=== PATIENT | female | born 1995 | race Caucasian/White ===

== ENCOUNTER 2017-03-04 05:35 | Emergency (ER) | payer SELFPAY ==
--- NOTE | 2017-03-04 05:59 | ED NURSING NOTES ---
Clinical Report - Nurses [facility] [address] [place] [address] 03/04/2017 5:37 Patient: DUSTIN HAMMONDS TRIAGE Triage time 05:37. Acuity: LEVEL 4. Chief Complaint: SORE THROAT. 05:49 03/04/17. Alert. No acute distress. SEPSIS SCREEN: Sepsis Screen. Negative (no infection suspected/documented). --05:49 Radha Gonzalez R.N. 05:42 03/04/17. BP: 105/63. HR: 74. RR: 15. O2 saturation: 100%. Temp: 98.3 F. Pain level now: 04/26. --05:49 Radha Gonzalez R.N. Weight: 77.1 kg stated. Height/Length: 65 inches Per Patient. BMI: 28.3. --05:48 Radha Gonzalez R.N. Medications None. --05:46 Radha Gonzalez R.N. Allergies None. --05:46 Radha Gonzalez R.N. History Arrived by private vehicle. Historian: patient. Accompanied by friend. Onset. (a few days ago). ( Patient states her throat has progressively gotten more sore over the past few days. She states "I came in today because it hurt so bad to swallow." Patient reports having a 101F temperature earlier today.). She has had sinus pain. ( productive cough). PAST MEDICAL HX: Immunizations: up-to-date. Denies current . SOCIAL HX: Light tobacco smoker- less than 1/2 a pack per day. Occasional alcohol use. History of drug use: marijuana. FALL RISK ASSESSMENT: Fall risk assessment completed. No fall risk identified. NUTRITIONAL RISK ASSESSMENT: The nutritional risk assessment revealed no deficiencies. FUNCTIONAL ASSESSMENT: Functional assessment: no impairments noted. LEARNING NEEDS ASSESSMENT: The learning needs assessment revealed no barriers. --05:49 Radha Gonzalez R.N. PROBLEMS: no known problems. ADDITIONAL SURGERIES: no known surgeries. Interventions ID band on patient. To treatment room. --05:49 Radha Gonzalez R.N. PHYSICAL ASSESSMENT 05:51 03/04/17. Ambulatory to room. GENERAL / NEURO / PSYCH: Alert. Oriented X 4. Appears in no acute distress. HEENT: Pupils equal, round and reactive to light. Posterior pharyngeal erythema. Voice within normal limits. Mouth within normal limits upon inspection. No dental injury noted. Mucous membranes are pink. RESPIRATORY: Respirations not labored. CVS: Capillary refill less than 2 seconds. SKIN: Skin is warm and dry. --05:51 Radha Gonzalez R.N. NURSING PROGRESS NOTES 05:51 03/04/17. Two patient identifiers checked. Call light placed in reach. Side rails up x 1. Bed placed in lowest position. Brakes of bed on. --05:51 Radha Gonzalez R.N. ( positive strep called by Nicki in the lab to writing RN. Patient birthday and name verified. Provider notified.). --06:12 Tiffany Uribe 06:00 03/04/2017 Clindamycin PO Tablets 300 mg given. Allergies verified and confirmed 5 rights. --20:30 Radha Gonzalez R.N. 06:02 03/04/2017 Hydrocodone-APAP (Hydrocodone-Acetaminophen) PO 5/325 mg Tablets 1 tab given. Allergies verified, confirmed 5 rights and sedative warning given to the patient. --20:31 Radha Gonzalez R.N. 06:03 03/04/2017 Zofran ODT (Ondansetron) PO Oral Disintegrating Tablets 4 mg given. Allergies verified and confirmed 5 rights. --20:31 Radha Gonzalez R.N. DISPOSITION / DISCHARGE 06:09 03/04/17. No learning barriers present. Discharge instructions provided and reviewed with the patient. Reviewed warnings. Reviewed medication(s). Treatments reviewed. Activity restrictions reviewed. The patient was discharged home and accompanied by small wind energy installer. She left the Emergency Department ambulatory and via private vehicle. Automation Engineering Technician driving. --06:09 Radha Gonzalez R.N. 05:42 03/04/17. BP: 105/63. HR: 74. RR: 15. O2 saturation: 100%. Temp: 98.3 F. Pain level now: 04/26. --06:09 Radha Gonzalez R.N. Locked/Released at 03/09/2017 20:32 by Radha Gonzalez R.N.
--- NOTE | 2017-03-04 05:59 | ED NURSING NOTES ---
Clinical Report - Nurses [facility] [address] [place] [address] 03/04/2017 5:37 Patient: DUSTIN HAMMONDS TRIAGE Triage time 05:37. Acuity: LEVEL 4. Chief Complaint: SORE THROAT. 05:49 03/04/17. Alert. No acute distress. SEPSIS SCREEN: Sepsis Screen. Negative (no infection suspected/documented). --05:49 Radha Gonzalez R.N. 05:42 03/04/17. BP: 105/63. HR: 74. RR: 15. O2 saturation: 100%. Temp: 98.3 F. Pain level now: 04/26. --05:49 Radha Gonzalez R.N. Weight: 77.1 kg stated. Height/Length: 65 inches Per Patient. BMI: 28.3. --05:48 Radha Gonzalez R.N. Medications None. --05:46 Radha Gonzalez R.N. Allergies None. --05:46 Radha Gonzalez R.N. History Arrived by private vehicle. Historian: patient. Accompanied by friend. Onset. (a few days ago). ( Patient states her throat has progressively gotten more sore over the past few days. She states "I came in today because it hurt so bad to swallow." Patient reports having a 101F temperature earlier today.). She has had sinus pain. ( productive cough). PAST MEDICAL HX: Immunizations: up-to-date. Denies current . SOCIAL HX: Light tobacco smoker- less than 1/2 a pack per day. Occasional alcohol use. History of drug use: marijuana. FALL RISK ASSESSMENT: Fall risk assessment completed. No fall risk identified. NUTRITIONAL RISK ASSESSMENT: The nutritional risk assessment revealed no deficiencies. FUNCTIONAL ASSESSMENT: Functional assessment: no impairments noted. LEARNING NEEDS ASSESSMENT: The learning needs assessment revealed no barriers. --05:49 Radha Gonzalez R.N. PROBLEMS: no known problems. ADDITIONAL SURGERIES: no known surgeries. Interventions ID band on patient. To treatment room. --05:49 Radha Gonzalez R.N. PHYSICAL ASSESSMENT 05:51 03/04/17. Ambulatory to room. GENERAL / NEURO / PSYCH: Alert. Oriented X 4. Appears in no acute distress. HEENT: Pupils equal, round and reactive to light. Posterior pharyngeal erythema. Voice within normal limits. Mouth within normal limits upon inspection. No dental injury noted. Mucous membranes are pink. RESPIRATORY: Respirations not labored. CVS: Capillary refill less than 2 seconds. SKIN: Skin is warm and dry. --05:51 Radha Gonzalez R.N. NURSING PROGRESS NOTES 05:51 03/04/17. Two patient identifiers checked. Call light placed in reach. Side rails up x 1. Bed placed in lowest position. Brakes of bed on. --05:51 Radha Gonzalez R.N. ( positive strep called by Nicki in the lab to writing RN. Patient birthday and name verified. Provider notified.). --06:12 Tiffany Uribe 06:00 03/04/2017 Clindamycin PO Tablets 300 mg given. Allergies verified and confirmed 5 rights. --20:30 Radha Gonzalez R.N. 06:02 03/04/2017 Hydrocodone-APAP (Hydrocodone-Acetaminophen) PO 5/325 mg Tablets 1 tab given. Allergies verified, confirmed 5 rights and sedative warning given to the patient. --20:31 Radha Gonazlez R.N. 06:03 03/04/2017 Zofran ODT (Ondansetron) PO Oral Disintegrating Tablets 4 mg given. Allergies verified and confirmed 5 rights. --20:31 Radha Gonzalez R.N. DISPOSITION / DISCHARGE 06:09 03/04/17. No learning barriers present. Discharge instructions provided and reviewed with the patient. Reviewed warnings. Reviewed medication(s). Treatments reviewed. Activity restrictions reviewed. The patient was discharged home and accompanied by tin can feeder. She left the Emergency Department ambulatory and via private vehicle. Rice Farmworker driving. --06:09 Radha Gonzalez R.N. 05:42 03/04/17. BP: 105/63. HR: 74. RR: 15. O2 saturation: 100%. Temp: 98.3 F. Pain level now: 04/26. --06:09 Radha Gonzalez R.N. Locked/Released at 03/09/2017 20:32 by Radha Gonzalez R.N.
--- NOTE | 2017-03-04 05:59 | ED CLINICAL REPORT ---
Clinical Report - Physicians/Mid Levels [facility] [address] [place] [address] 03/04/2017 5:37 Patient: DUSTIN HAMMONDS Time Seen: 05:47. Arrived- By private vehicle. Historian- patient. HISTORY OF PRESENT ILLNESS Chief Complaint: SORE THROAT. This started several days ago and is still present. It was gradual in onset and has been waxing/waning. Pain described as moderate. The patient has had a moderate sore throat with pain upon swallowing. She has been able to swallow. (Patient states her throat has progressively gotten more sore over the past few days. She states "I came in today because it hurt so bad to swallow." Patient reports having a 101F temperature earlier toda). Similar symptoms previously: None. Recent medical care: Not recently seen/assessed. REVIEW OF SYSTEMS The patient has had fever. No cough, difficulty breathing, nausea, diarrhea or abdominal pain. No difficulty with urination, headache, fainting episodes, joint pain or skin rash. No vomiting. Denies current . All systems otherwise negative, except as recorded above. PAST HISTORY Negative. See nurses notes. Problems: no known problems. Surgeries: No history of previous surgery. Additional Surgeries: no known surgeries. Medications: None. Allergies: None. SOCIAL HISTORY Smoker- current status unknown. Occasional alcohol use. History of drug use: marijuana. Is a local resident. ADDITIONAL NOTES The nursing notes have been reviewed. PHYSICAL EXAM Vital Signs: 03/04/2017 05:42 BP: 105/63. HR: 74. RR: 15. O2 saturation: 100%. Temp: 98.3 F. Pain level now: 8/10. Appearance: Alert. Patient in mild distress. Head: Normal external inspection. Eyes: Conjunctivae and eyelids normal. ENT: Nose normal. Moderate generalized pharyngeal erythema with right tonsillar swelling and left tonsillar swelling. No pharyngeal ulcerations. No right tonsillar exudate, right tonsillar abscess, left tonsillar exudate or left tonsillar abscess. No trismus present. Uvula midline. No mouth ulcerations, tonsillar exudate, peritonsillar mass, muffled or hoarse voice or drooling. The mucous membranes are not dry. Neck: Normal inspection. Mild right anterior neck and mild left anterior neck lymphadenopathy present. Trachea midline. Neck supple. No meningeal signs. CVS: Normal heart rate and rhythm. Heart sounds normal. Pulses normal. No cardiac murmur. Respiratory: No respiratory distress. Breath sounds normal. Abdomen: Soft and nontender. No organomegaly. Skin: No cyanosis. Normal skin color. No rash. Normal skin turgor. No diaphoresis. Extremities: Extremities exhibit normal ROM. Extremities nontender. Neuro: Oriented X 3. No motor deficit. LABS, X-RAYS, AND EKG Laboratory Tests: Culture, Strep Screen: (WILLY: 03/04/2017 05:51) ( MsgRcvd 03/04/2017 06:12) Final results Test Result Flag Units (Reference) RAPID STREP SCREEN - THROAT CALLED TO: AURA@0611 -- DATE: 03/04/17 POSITIVE SCREEN: RAPID STREP SCREEN: POSITIVE FOR GROUP A STREP . Pulse Oximetry: 03/04/2017 05:42 O2 saturation: 100%. (FIO2 - room air). Interpretation: normal. PROGRESS AND PROCEDURES Course of Care: Hydrocodone/APAP 5 mg PO given. Prednisone 60 mg PO given. Zofran 4 mg ODT PO given. Clindamycin 300 mg PO given. No signs of abscess now. Patient/family counseled. Prior records not ordered. Disposition: Discharged. Condition: stable and improved. CLINICAL IMPRESSION Acute streptococcal pharyngitis Chronic substance abuse- tobacco (cigarettes), marijuana. INSTRUCTIONS Do not work for two days. Drink plenty of fluids. Do not smoke. Seek medical help to quit smoking. Warnings: Further evaluation is necessary in order to recheck abnormal lab and obtain test results. It is very important to follow up with a physician. SEDATIVE MEDICATION: You were given sedative medication during your visit. Do not drive or operate dangerous machinery. CONTROLLED SUBSTANCE WARNINGS. GENERAL WARNINGS: Return or contact your physician immediately if your condition worsens or changes unexpectedly, if not improving as expected, or if other problems arise. Prescription Medications: Hydrocodone/APAP 5mg / 325mg: take 1-2 orally every 8 hours as needed for pain. Dispense ten (10). No refill. Zofran (orally disintegrating tablets) 4 mg: take 1-2 orally every 8 hours as needed for nausea and vomiting. Dispense five (5). No refill. Substitution is permissible. Cleocin 300 mg: take 1 capsule orally every 6 hours for 7 days. No refills. Substitution is permissible. Prednisone 20 mg: take 3 orally every 12 hours for 4 days. Dispense sufficient quantity. No refills. OTC Medications: Acetaminophen (available over the counter): take according to label instructions. Follow-up: Follow up with your doctor in two days. (Electronically signed by Guille Frances DO 03/04/2017 6:15)
--- NOTE | 2017-03-04 05:59 | ED ORDER SUMMARY ---
..... Patient: DUSTIN HAMMONDS OrderSheet [facility] VisitID: [id number] [place] [address] 21y, F Registration Date/Time: 03/04/2017 ORDER SHEET Weight: 77.1 kg (stated) Allergies: None GENERAL ORDERS: Culture, Strep Screen Urgent (05:49 03/04/2017 [facility]) (Ack 5:55 RKaruga) (5:56 RMarsden R.N.) MEDICATION ORDERS: Clindamycin PO 300 mg (NOW) (05:55 03/04/2017 [facility]) (Ack 5:57 RMarsden R.N.) (20:30 RMarsden R.N.) Hydrocodone-APAP PO 5/325 mg (NOW, HIGH ALERT MEDICATION) (05:56 03/04/2017 [facility]) (Ack 5:57 RMarsden R.N.) (20:31 RMarsden R.N.) Zofran ODT PO 4 mg (NOW) (05:56 03/04/2017 [facility]) (Ack 5:57 RMarsden R.N.) (20:31 RMarsden R.N.) IV FLUIDS: ORDER SHEET NOTES: [Electronically signed by Guille Frances DO (06:15 03/04/2017)] [Electronically signed by Radha Gonzalez R.N. (20:32 03/09/2017)] [Electronically locked/signed by Radha Gonzalez R.N. (20:32 03/09/2017)]
--- NOTE | 2017-03-04 05:59 | ED ORDER SUMMARY ---
..... Patient: DUSTIN HAMMONDS OrderSheet [facility] VisitID: [id number] [place] [address] 21y, F Registration Date/Time: 03/04/2017 ORDER SHEET Weight: 77.1 kg (stated) Allergies: None GENERAL ORDERS: Culture, Strep Screen Urgent (05:49 03/04/2017 [facility]) (Ack 5:55 RKaruga) (5:56 RMarsden R.N.) MEDICATION ORDERS: Clindamycin PO 300 mg (NOW) (05:55 03/04/2017 [facility]) (Ack 5:57 RMarsden R.N.) (20:30 RMarsden R.N.) Hydrocodone-APAP PO 5/325 mg (NOW, HIGH ALERT MEDICATION) (05:56 03/04/2017 [facility]) (Ack 5:57 RMarsden R.N.) (20:31 RMarsden R.N.) Zofran ODT PO 4 mg (NOW) (05:56 03/04/2017 [facility]) (Ack 5:57 RMarsden R.N.) (20:31 RMarsden R.N.) IV FLUIDS: ORDER SHEET NOTES: [Electronically signed by Guille Frances DO (06:15 03/04/2017)] [Electronically signed by Radha Gonzalez R.N. (20:32 03/09/2017)] [Electronically locked/signed by Radha Gonzalez R.N. (20:32 03/09/2017)]
--- NOTE | 2017-03-09 20:32 | ED DISCHARGE INSTRUCTIONS ---
Patient: DUSTIN HAMMONDS General Instructions [facility] VisitID: [id number] [place] [address] 21y, F Registration Date/Time: 03/04/2017 Acute streptococcal pharyngitis Chronic substance abuse- tobacco (cigarettes), marijuana. INSTRUCTIONS Do not work for two days. Drink plenty of fluids. Do not smoke. Seek medical help to quit smoking. Warnings: Further evaluation is necessary in order to recheck abnormal lab and obtain test results. It is very important to follow up with a physician. SEDATIVE MEDICATION: You were given sedative medication during your visit. Do not drive or operate dangerous machinery. CONTROLLED SUBSTANCE WARNINGS. GENERAL WARNINGS: Return or contact your physician immediately if your condition worsens or changes unexpectedly, if not improving as expected, or if other problems arise. Prescription Medications: Hydrocodone/APAP 5mg / 325mg: take 1-2 orally every 8 hours as needed for pain. Dispense ten (10). No refill. Zofran (orally disintegrating tablets) 4 mg: take 1-2 orally every 8 hours as needed for nausea and vomiting. Dispense five (5). No refill. Substitution is permissible. Cleocin 300 mg: take 1 capsule orally every 6 hours for 7 days. No refills. Substitution is permissible. Prednisone 20 mg: take 3 orally every 12 hours for 4 days. Dispense sufficient quantity. No refills. OTC Medications: Acetaminophen (available over the counter): take according to label instructions. Follow-up: Follow up with your doctor in two days. ADDITIONAL INFORMATION Pharyngitis (Sore Throat),Report Pending Pharyngitis (sore throat) is often due to a virus, but can also be caused by thestrepbacteria. This is calledstrep throat. Both viral and strep infection can cause throat pain that is worse when swallowing, aching all over with headache and fever. Both types of infections are contagious. They may be spread by coughing, kissing or touching others after touching your mouth or nose. A test has been done to determine whether or not you have strep throat. Call this facility as directed for the result. If it is positive for strep infection you will need to take antibiotics. A prescription can be called in to your pharmacy at that time. If the test is negative, you probably have a viral pharyngitis and it will not require antibiotic treatment. Home Care: If your symptoms are severe, rest at home for the first 2-3 days. If you are told that your test is positive for strep, you should be off work and school for the first two days of antibiotic treatment. After that, you will no longer be contagious. Children: Use acetaminophen (Tylenol) for fever, fussiness or discomfort. In infants over six months of age, you may use ibuprofen (Children's Motrin) instead of Tylenol. [NOTE: If your child has chronic liver or kidney disease or ever had a stomach ulcer or GI bleeding, talk with your doctor before using these medicines.] (Aspirin should never be used in anyone under 18 years of age who is ill with a fever. It may cause severe liver damage.)Adults: You may use acetaminophen (Tylenol) or ibuprofen (Motrin, Advil) to control pain or fever, unless another medicine was prescribed for this. [NOTE: If you have chronic liver or kidney disease or ever had a stomach ulcer or GI bleeding, talk with your doctor before using these medicines.] Throat lozenges or sprays (Chloraseptic and others), or gargling with warm salt water will reduce throat pain. Dissolve 1/2 teaspoon of salt in 1 glass of warm water. This is especially useful just before meals. Follow Up with your doctor as advised by our staff if you are not improving over the next week. Get Prompt Medical Attention if any of the following occur: Fever of 100.4F (38C) oral or higher, not better with fever medication New or worsening ear pain, sinus pain or headache Painful lumps in the back of your neck Unable to swallow liquids or open your mouth wide due to throat pain Trouble breathing or noisy breathing Muffled voice New rash Marijuana Abuse Marijuana is the most widely used illegal drug in the [place]. It is called by various names such as pot, weed, blunts, grass, reefer, ganja, hash, hashish. It is usually smoked but can be mixed with foods or brewed as a tea. It is sometimes sold with PCP (Mario Dust) or amphetamine mixed in it. These drugs can cause other harmful side effects. Marijuana can cause the following effects: Changes in mood (stimulated, happy, drowsy, depressed, paranoid) Hallucinations Increased heart rate and blood pressure Increased appetite Time distortion, difficulty concentrating, impaired memory Lung damage (similar to cigarettes with chronic cough, wheezing, frequent colds and bronchitis) You can become psychologically dependent on marijuana. That means the craving to use the drug is emotional or psychological rather than due to physical withdrawal. Is Marijuana Running Your Life? Here are some of the signs: Relying on marijuana to feel good, forget problems, deal with stress or to relax Wanting to be alone most of the time or only with others who use drugs Losing interest in things that used to be important Changes in school or job performance or attendance Spending a lot of time thinking about how to get marijuana Stealing or selling your things so you can buy marijuana Unable to stop using even though you may want to quit Increasing anxiety, anger,or depression Sleeping too much, changes in eating habits (weight loss or gain) Needing to use more to get the same effect Home Care Once you have become addicted to any drug, quitting is hard to do. Most people find they can't quit without help. So, dont try to do this alone. Talk to someone you trust who can support you. Seek professional help. Avoid people and places where drugs are used. That only increases the temptation to use. Follow Up with your doctor or as advised by our staff. For more information or a referral to a treatment center in your area, contact: Your local mental health center or the National Alcohol and Substance Abuse Information Center (207)-055-0756 www.addictioncareoptions.com National [place] on Alcoholism and Drug Dependence 058-518-TUWK www.ncadd.org Marijuana Anonymous 477-005-4829 www.marijuana-anonymous.org Get Prompt Medical Attention if any of the following occur: You feel extreme depression, fear, anxiety, or anger toward yourself or others You feel out of control You feel that you may try to harm yourself or another How To Quit Smoking Smoking is one of the hardest habits to break. About half of all those who have ever smoked have been able to quit, and most of those (about 70%) who still smoke want to quit. Here are some of the best ways to stop smoking. Keep Trying: It takes most smokers about 8 tries before they are finally able to fully quit. So, the more often you try and fail, the better your chance of quitting the next time! So, don't give up! Go Cold [place]: Most ex-smokers quit cold turkey. Trying to cut back gradually doesn't seem to work as well, perhaps because it continues the smoking habit. Also, it is possible to fool yourself by inhaling more while smoking fewer cigarettes. This results in the same amount of nicotine in your body! Get Support: Support programs can make an important difference, especially for the heavy smoker. These groups offer lectures, methods to change your behavior and peer support. Call the free national Quitline for more information. 556-FGLG-OFB (143-438-8885). Low-cost or free programs are offered by many hospitals, local chapters of the [place] [employer] (981-915-1006) and the [place] [employer] (947-191-7674). Support at home is important too. Non-smokers can help by offering praise and encouragement. If the smoker fails to quit, encourage them to try again! Uruc-Pfm-Ivmhodv Medicines: For those who can't quit on their own, Nicotine Replacement Therapy (NRT) may make quitting much easier. Certain aids such as the nicotine patch, gum and lozenge are available without a prescription. However, it is best to use these under the guidance of your doctor. The skin patch provides a steady supply of nicotine to the body. Nicotine gum and lozenge gives temporary bursts of low levels of nicotine. Both methods take the edge off the craving for cigarettes. WARNING: If you feel symptoms of nicotine overdose, such as nausea, vomiting, dizziness, weakness, or fast heartbeat, stop using these and see your doctor. Prescription Medicines: After evaluating your smoking patterns and prior attempts at quitting, your doctor may offer a prescription medicine such as bupropion (Zyban, Wellbutrin), varenicline (Chantix, Champix), a niocotine inhaler or nasal spray. Each has its unique advantage and side effects which your doctor can review with you. Health Benefits Of Quitting: The benefits of quitting start right away and keep improving the longer you go without smokin minutes: blood pressure and pulse return to normal 8 hours: oxygen levels return to normal 2 days: ability to smell and taste begins to improve as damaged nerves start to regrow 2-3 weeks: circulation and lung function improves 1-9 months: decreased cough, congestion and shortness of breath; less tired 1 year: risk of heart attack decreases by half 5 years: risk of lung cancer decreases by half; risk of stroke becomes the same as a non-smoker For information about how to quit smoking, visit the following links: National Cancer Wiley , Clearing the Air, Quit Smoking Today - an online booklet. http://www.smokefree.gov/pubs/clearing_the_air.pdf Smokefree.gov http://smokefree.gov/ QuitNet http://www.quitnet.com/ Hydrocodone Bitartrate, Acetaminophen Oral tablet What is this medicine? ACETAMINOPHEN; HYDROCODONE (a set a SHAGGY junaita fen; milady droe KOE done) is a pain reliever. It is used to treat mild to moderate pain. How should I use this medicine? Take this medicine by mouth. Swallow it with a full glass of water. Follow the directions on the prescription label. If the medicine upsets your stomach, take the medicine with food or milk. Do not take more than you are told to take. Talk to your lumber sticker regarding the use of this medicine in children. This medicine is not approved for use in children. What side effects may I notice from receiving this medicine? Side effects that you should report to your doctor or health animal care taker as soon as possible: allergic reactions like skin rash, itching or hives, swelling of the face, lips, or tongue breathing problems confusion feeling faint or lightheaded, falls stomach pain yellowing of the eyes or skin Side effects that usually do not require medical attention (report to your doctor or health animal care taker if they continue or are bothersome): nausea, vomiting stomach upset What may interact with this medicine? alcohol antihistamines isoniazid medicines for depression, anxiety, or psychotic disturbances medicines for sleep muscle relaxants naltrexone narcotic medicines (opiates) for pain phenobarbital ritonavir tramadol What if I miss a dose? If you miss a dose, take it as soon as you can. If it is almost time for your next dose, take only that dose. Do not take double or extra doses. Where should I keep my medicine? Keep out of the reach of children. This medicine can be abused. Keep your medicine in a safe place to protect it from theft. Do not share this medicine with anyone. Selling or giving away this medicine is dangerous and against the law. Store at room temperature between 15 and 30 degrees C (59 and 86 degrees F). Protect from light. Keep container tightly closed. Throw away any unused medicine after the expiration date. Discard unused medicine and used packaging carefully. Pets and children can be harmed if they find used or lost packages. What should I tell my health care provider before I take this medicine? They need to know if you have any of these conditions: brain tumor Crohn's disease, inflammatory bowel disease, or ulcerative colitis drink more than 3 alcohol-containing drinks per day drug abuse or addiction head injury heart or circulation problems kidney disease or problems going to the bathroom liver disease lung disease, asthma, or breathing problems an unusual or allergic reaction to acetaminophen, hydrocodone, other opioid analgesics, other medicines, foods, dyes, or preservatives or trying to get breast-feeding What should I watch for while using this medicine? Tell your doctor or health animal care taker if your pain does not go away, if it gets worse, or if you have new or a different type of pain. You may develop tolerance to the medicine. Tolerance means that you will need a higher dose of the medicine for pain relief. Tolerance is normal and is expected if you take the medicine for a long time. Do not suddenly stop taking your medicine because you may develop a severe reaction. Your body becomes used to the medicine. This does NOT mean you are addicted. Addiction is a behavior related to getting and using a drug for a non-medical reason. If you have pain, you have a medical reason to take pain medicine. Your doctor will tell you how much medicine to take. If your doctor wants you to stop the medicine, the dose will be slowly lowered over time to avoid any side effects. You may get drowsy or dizzy when you first start taking the medicine or change doses. Do not drive, use machinery, or do anything that may be dangerous until you know how the medicine affects you. Stand or sit up slowly. There are different types of narcotic medicines (opiates) for pain. If you take more than one type at the same time, you may have more side effects. Give your health care provider a list of all medicines you use. Your doctor will tell you how much medicine to take. Do not take more medicine than directed. Call emergency for help if you have problems breathing. The medicine will cause constipation. Try to have a bowel movement at least every 2 to 3 days. If you do not have a bowel movement for 3 days, call your doctor or health animal care taker. Too much acetaminophen can be very dangerous. Do not take Tylenol (acetaminophen) or medicines that contain acetaminophen with this medicine. Many non-prescription medicines contain acetaminophen. Always read the labels carefully. Ondansetron Oral disintegrating tablet What is this medicine? ONDANSETRON (on SHO se david) is used to treat nausea and vomiting caused by chemotherapy. It is also used to prevent or treat nausea and vomiting after surgery. How should I use this medicine? These tablets are made to dissolve in the mouth. Do not try to push the tablet through the foil backing. With dry hands, peel away the foil backing and gently remove the tablet. Place the tablet in the mouth and allow it to dissolve, then swallow. While you may take these tablets with water, it is not necessary to do so. Talk to your lumber sticker regarding the use of this medicine in children. Special care may be needed. What side effects may I notice from receiving this medicine? Side effects that you should report to your doctor or health animal care taker as soon as possible: allergic reactions like skin rash, itching or hives, swelling of the face, lips, or tongue breathing problems dizziness fast or irregular heartbeat feeling faint or lightheaded, falls fever and chills swelling of the hands and feet tightness in the chest Side effects that usually do not require medical attention (report to your doctor or health animal care taker if they continue or are bothersome): constipation or diarrhea headache What may interact with this medicine? Do not take this medicine with any of the following medications: -apomorphine -cisapride -dofetilide -dronedarone -pimozide -thioridazine -ziprasidone This medicine may also interact with the following medications: -carbamazepine -phenytoin -rifampicin -tramadol -other medicines that prolong the QT interval (cause an abnormal heart rhythm) What if I miss a dose? If you miss a dose, take it as soon as you can. If it is almost time for your next dose, take only that dose. Do not take double or extra doses. Where should I keep my medicine? Keep out of the reach of children. Store between 2 and 30 degrees C (36 and 86 degrees F). Throw away any unused medicine after the expiration date. What should I tell my health care provider before I take this medicine? They need to know if you have any of these conditions: heart disease history of irregular heartbeat liver disease low levels of magnesium or potassium in the blood an unusual or allergic reaction to ondansetron, granisetron, other medicines, foods, dyes, or preservatives or trying to get breast-feeding What should I watch for while using this medicine? Check with your doctor or health animal care taker as soon as you can if you have any sign of an allergic reaction. Clindamycin Hydrochloride Oral capsule What is this medicine? CLINDAMYCIN (DAVID Griffin) is a lincosamide antibiotic. It is used to treat certain kinds of bacterial infections. It will not work for colds, flu, or other viral infections. How should I use this medicine? Take this medicine by mouth with a full glass of water. Follow the directions on the prescription label. You can take this medicine with food or on an empty stomach. If the medicine upsets your stomach, take it with food. Take your medicine at regular intervals. Do not take your medicine more often than directed. Take all of your medicine as directed even if you think your are better. Do not skip doses or stop your medicine early. Talk to your lumber sticker regarding the use of this medicine in children. Special care may be needed. What side effects may I notice from receiving this medicine? Side effects that you should report to your doctor or health animal care taker as soon as possible: allergic reactions like skin rash, itching or hives, swelling of the face, lips, or tongue dark urine pain on swallowing redness, blistering, peeling or loosening of the skin, including inside the mouth unusual bleeding or bruising unusually weak or tired yellowing of eyes or skin Side effects that usually do not require medical attention (report to your doctor or health animal care taker if they continue or are bothersome): diarrhea itching in the rectal or genital area joint pain nausea, vomiting stomach pain What may interact with this medicine? chloramphenicol erythromycin kaolin products What if I miss a dose? If you miss a dose, take it as soon as you can. If it is almost time for your next dose, take only that dose. Do not take double or extra doses. Where should I keep my medicine? Keep out of the reach of children. Store at room temperature between 20 and 25 degrees C (68 and 77 degrees F). Throw away any unused medicine after the expiration date. What should I tell my health care provider before I take this medicine? They need to know if you have any of these conditions: kidney disease liver disease stomach problems like colitis an unusual or allergic reaction to clindamycin, lincomycin, or other medicines, foods, dyes like tartrazine or preservatives or trying to get breast-feeding What should I watch for while using this medicine? Tell your doctor or healthcare professional if your symptoms do not start to get better or if they get worse. Do not treat diarrhea with over the counter products. Contact your doctor if you have diarrhea that lasts more than 2 days or if it is severe and watery. Prednisone Oral tablet What is this medicine? PREDNISONE (PRED ni sone) is a corticosteroid. It is commonly used to treat inflammation of the skin, joints, lungs, and other organs. Common conditions treated include asthma, allergies, and arthritis. It is also used for other conditions, such as blood disorders and diseases of the adrenal glands. How should I use this medicine? Take this medicine by mouth with a glass of water. Follow the directions on the prescription label. Take this medicine with food. If you are taking this medicine once a day, take it in the morning. Do not take more medicine than you are told to take. Do not suddenly stop taking your medicine because you may develop a severe reaction. Your doctor will tell you how much medicine to take. If your doctor wants you to stop the medicine, the dose may be slowly lowered over time to avoid any side effects. Talk to your lumber sticker regarding the use of this medicine in children. Special care may be needed. What side effects may I notice from receiving this medicine? Side effects that you should report to your doctor or health animal care taker as soon as possible: allergic reactions like skin rash, itching or hives, swelling of the face, lips, or tongue changes in emotions or moods changes in vision depressed mood eye pain fever or chills, cough, sore throat, pain or difficulty passing urine increased thirst swelling of ankles, feet Side effects that usually do not require medical attention (report to your doctor or health animal care taker if they continue or are bothersome): confusion, excitement, restlessness headache nausea, vomiting skin problems, acne, thin and shiny skin trouble sleeping weight gain What may interact with this medicine? Do not take this medicine with any of the following medications: metyrapone mifepristone This medicine may also interact with the following medications: aminoglutethimide amphotericin B aspirin and aspirin-like medicines barbiturates certain medicines for diabetes, like glipizide or glyburide cholestyramine cholinesterase inhibitors cyclosporine digoxin diuretics ephedrine female hormones, like estrogens and control pills isoniazid ketoconazole NSAIDS, medicines for pain and inflammation, like ibuprofen or naproxen phenytoin rifampin toxoids vaccines warfarin What if I miss a dose? If you miss a dose, take it as soon as you can. If it is almost time for your next dose, talk to your doctor or health animal care taker. You may need to miss a dose or take an extra dose. Do not take double or extra doses without advice. Where should I keep my medicine? Keep out of the reach of children. Store at room temperature between 15 and 30 degrees C (59 and 86 degrees F). Protect from light. Keep container tightly closed. Throw away any unused medicine after the expiration date. What should I tell my health care provider before I take this medicine? They need to know if you have any of these conditions: Marcia's syndrome diabetes glaucoma heart disease high blood pressure infection (especially a virus infection such as chickenpox, cold sores, or herpes) kidney disease liver disease mental illness myasthenia gravis osteoporosis seizures stomach or intestine problems thyroid disease an unusual or allergic reaction to lactose, prednisone, other medicines, foods, dyes, or preservatives or trying to get breast-feeding What should I watch for while using this medicine? Visit your doctor or health animal care taker for regular checks on your progress. If you are taking this medicine over a prolonged period, carry an identification card with your name and address, the type and dose of your medicine, and your doctor's name and address. This medicine may increase your risk of getting an infection. Tell your doctor or health animal care taker if you are around anyone with measles or chickenpox, or if you develop sores or blisters that do not heal properly. If you are going to have surgery, tell your doctor or health animal care taker that you have taken this medicine within the last twelve months. Ask your doctor or health animal care taker about your diet. You may need to lower the amount of salt you eat. This medicine may affect blood sugar levels. If you have diabetes, check with your doctor or health animal care taker before you change your diet or the dose of your diabetic medicine. Acetaminophen Oral tablet What is this medicine? ACETAMINOPHEN (a set a SHAGGY juanita fen) is a pain reliever. It is used to treat mild pain and fever. How should I use this medicine? Take this medicine by mouth with a glass of water. Follow the directions on the package or prescription label. Take your medicine at regular intervals. Do not take your medicine more often than directed. Talk to your lumber sticker regarding the use of this medicine in children. While this drug may be prescribed for children as young as 6 years of age for selected conditions, precautions do apply. What side effects may I notice from receiving this medicine? Side effects that you should report to your doctor or health animal care taker as soon as possible: allergic reactions like skin rash, itching or hives, swelling of the face, lips, or tongue breathing problems fever or sore throat redness, blistering, peeling or loosening of the skin, including inside the mouth trouble passing urine or change in the amount of urine unusual bleeding or bruising unusually weak or tired yellowing of the eyes or skin Side effects that usually do not require medical attention (report to your doctor or health animal care taker if they continue or are bothersome): headache nausea, stomach upset What may interact with this medicine? alcohol imatinib isoniazid other medicines with acetaminophen What if I miss a dose? If you miss a dose, take it as soon as you can. If it is almost time for your next dose, take only that dose. Do not take double or extra doses. Where should I keep my medicine? Keep out of reach of children. Store at room temperature between 20 and 25 degrees C (68 and 77 degrees F). Protect from moisture and heat. Throw away any unused medicine after the expiration date. What should I tell my health care provider before I take this medicine? They need to know if you have any of these conditions: if you frequently drink alcohol containing drinks liver disease an unusual or allergic reaction to acetaminophen, other medicines, foods, dyes or preservatives or trying to get breast-feeding What should I watch for while using this medicine? Tell your doctor or health animal care taker if the pain lasts more than 10 days (5 days for children), if it gets worse, or if there is a new or different kind of pain. Also, check with your doctor if a fever lasts for more than 3 days. Do not take other medicines that contain acetaminophen with this medicine. Always read labels carefully. If you have questions, ask your doctor or pharmacist. If you take too much acetaminophen get medical help right away. Too much acetaminophen can be very dangerous and cause liver damage. Even if you do not have symptoms, it is important to get help right away. You have been given the following additional information: Pharyngitis, Report Pending Marijuana Abuse Smoking Cessation Hydrocodone Bitartrate, Acetaminophen Oral tablet Ondansetron Oral disintegrating tablet Clindamycin Hydrochloride Oral capsule Prednisone Oral tablet Acetaminophen Oral tablet Do not work for two days. (Electronically signed by Guille Frances DO 03/04/2017 6:15)
--- NOTE | 2017-03-09 20:32 | ED MAR SUMMARY ---
..... Medication Administration Record [facility] [address] [place] [address] Patient: DUSTIN HAMMONDS Visit ID: [id number] 21y, F Weight: 77.1 kg Height/Length: 65 in BMI: 28.3 ALLERGIES: None Given 06:00 03/04/2017 Radha Gonzalez RRyley Medication Administered: CLINDAMYCIN [PO], Dose: 300 mg Tablets PO. Medication Ordered: Clindamycin PO 300 mg (NOW). Given 06:02 03/04/2017 Radha Gonzalez RChristineNChristine Medication Administered: HYDROCODONE-APAP [PO] (HYDROCODONE-ACETAMINOPHEN), Dose: 1 tab 5/325 mg Tablets PO. Medication Ordered: Hydrocodone-APAP PO 5/325 mg (NOW, HIGH ALERT MEDICATION). Given 06:03 03/04/2017 Radha Gonzalez, R.N. Medication Administered: ZOFRAN ODT [PO] (ONDANSETRON), Dose: 4 mg Oral Disintegrating Tablets PO. Medication Ordered: Zofran ODT PO 4 mg (NOW).
--- NOTE | 2017-03-09 20:32 | ED MED RECONCILIATION SUMMARY ---
Patient: DUSTIN HAMMONDS Medication Reconciliation Report [facility] VisitID: [id number] [place] [address] 21y, F Registration Date/Time: 03/04/2017 Weight: 77.1 kg Height/Length: 65 in. BMI: 28.3 ALLERGIES: None The patient's Home Medications are listed below: NONE. The source(s) of the original Home Medication information: Not obtained. The following Medications were given to the patient in the Emergency Department: Clindamycin [PO] PO 300 mg, administered: 03/04/2017 6:00:00 AM Hydrocodone-APAP [PO] PO 1 tab, administered: 03/04/2017 6:02:00 AM Zofran ODT [PO] PO 4 mg, administered: 03/04/2017 6:03:00 AM The following Medications were prescribed to the patient: Acetaminophen (available over the counter): take according to label instructions. -- Guille Frances DO Hydrocodone/APAP 5mg / 325mg: take 1-2 orally every 8 hours as needed for pain. Dispense ten (10). No refill. -- Guille Frances DO Zofran (orally disintegrating tablets) 4 mg: take 1-2 orally every 8 hours as needed for nausea and vomiting. Dispense five (5). No refill. Substitution is permissible. -- Guille Frances DO Cleocin 300 mg: take 1 capsule orally every 6 hours for 7 days. No refills. Substitution is permissible. -- Guille Frances DO Prednisone 20 mg: take 3 orally every 12 hours for 4 days. Dispense sufficient quantity. No refills. -- Guille Frances DO
--- NOTE | 2017-03-09 20:32 | ED MAR SUMMARY ---
..... Medication Administration Record [facility] [address] [place] [address] Patient: DUSTIN HAMMONDS Visit ID: [id number] 21y, F Weight: 77.1 kg Height/Length: 65 in BMI: 28.3 ALLERGIES: None Given 06:00 03/04/2017 Radha Gonzalez RRyley Medication Administered: CLINDAMYCIN [PO], Dose: 300 mg Tablets PO. Medication Ordered: Clindamycin PO 300 mg (NOW). Given 06:02 03/04/2017 Radha Gonzalez RChristineNChristine Medication Administered: HYDROCODONE-APAP [PO] (HYDROCODONE-ACETAMINOPHEN), Dose: 1 tab 5/325 mg Tablets PO. Medication Ordered: Hydrocodone-APAP PO 5/325 mg (NOW, HIGH ALERT MEDICATION). Given 06:03 03/04/2017 Radha Gonzalez, R.N. Medication Administered: ZOFRAN ODT [PO] (ONDANSETRON), Dose: 4 mg Oral Disintegrating Tablets PO. Medication Ordered: Zofran ODT PO 4 mg (NOW).
--- NOTE | 2017-03-09 20:32 | ED DISCHARGE INSTRUCTIONS ---
Patient: DUSTIN HAMMONDS General [facility] VisitID: [id number] [place] [address] 21y, F Registration Date/Time: 03/04/2017 Acute streptococcal pharyngitis Chronic substance abuse- tobacco (cigarettes), marijuana. INSTRUCTIONS Do not work for two days. Drink plenty of fluids. Do not smoke. Seek medical help to quit smoking. Warnings: Further evaluation is necessary in order to recheck abnormal lab and obtain test results. It is very important to follow up with a physician. SEDATIVE MEDICATION: You were given sedative medication during your visit. Do not drive or operate dangerous machinery. CONTROLLED SUBSTANCE WARNINGS. GENERAL WARNINGS: Return or contact your physician immediately if your condition worsens or changes unexpectedly, if not improving as expected, or if other problems arise. Prescription Medications: Hydrocodone/APAP 5mg / 325mg: take 1-2 orally every 8 hours as needed for pain. Dispense ten (10). No refill. Zofran (orally disintegrating tablets) 4 mg: take 1-2 orally every 8 hours as needed for nausea and vomiting. Dispense five (5). No refill. Substitution is permissible. Cleocin 300 mg: take 1 capsule orally every 6 hours for 7 days. No refills. Substitution is permissible. Prednisone 20 mg: take 3 orally every 12 hours for 4 days. Dispense sufficient quantity. No refills. OTC Medications: Acetaminophen (available over the counter): take according to label instructions. Follow-up: Follow up with your doctor in two days. ADDITIONAL INFORMATION Pharyngitis (Sore Throat),Report Pending Pharyngitis (sore throat) is often due to a virus, but can also be caused by thestrepbacteria. This is calledstrep throat. Both viral and strep infection can cause throat pain that is worse when swallowing, aching all over with headache and fever. Both types of infections are contagious. They may be spread by coughing, kissing or touching others after touching your mouth or nose. A test has been done to determine whether or not you have strep throat. Call this facility as directed for the result. If it is positive for strep infection you will need to take antibiotics. A prescription can be called in to your pharmacy at that time. If the test is negative, you probably have a viral pharyngitis and it will not require antibiotic treatment. Home Care: If your symptoms are severe, rest at home for the first 2-3 days. If you are told that your test is positive for strep, you should be off work and school for the first two days of antibiotic treatment. After that, you will no longer be contagious. Children: Use acetaminophen (Tylenol) for fever, fussiness or discomfort. In infants over six months of age, you may use ibuprofen (Children's Motrin) instead of Tylenol. [NOTE: If your child has chronic liver or kidney disease or ever had a stomach ulcer or GI bleeding, talk with your doctor before using these medicines.] (Aspirin should never be used in anyone under 18 years of age who is ill with a fever. It may cause severe liver damage.)Adults: You may use acetaminophen (Tylenol) or ibuprofen (Motrin, Advil) to control pain or fever, unless another medicine was prescribed for this. [NOTE: If you have chronic liver or kidney disease or ever had a stomach ulcer or GI bleeding, talk with your doctor before using these medicines.] Throat lozenges or sprays (Chloraseptic and others), or gargling with warm salt water will reduce throat pain. Dissolve 1/2 teaspoon of salt in 1 glass of warm water. This is especially useful just before meals. Follow Up with your doctor as advised by our staff if you are not improving over the next week. Get Prompt Medical Attention if any of the following occur: Fever of 100.4F (38C) oral or higher, not better with fever medication New or worsening ear pain, sinus pain or headache Painful lumps in the back of your neck Unable to swallow liquids or open your mouth wide due to throat pain Trouble breathing or noisy breathing Muffled voice New rash Marijuana Abuse Marijuana is the most widely used illegal drug in the [place]. It is called by various names such as pot, weed, blunts, grass, reefer, ganja, hash, hashish. It is usually smoked but can be mixed with foods or brewed as a tea. It is sometimes sold with PCP (Mario Dust) or amphetamine mixed in it. These drugs can cause other harmful side effects. Marijuana can cause the following effects: Changes in mood (stimulated, happy, drowsy, depressed, paranoid) Hallucinations Increased heart rate and blood pressure Increased appetite Time distortion, difficulty concentrating, impaired memory Lung damage (similar to cigarettes with chronic cough, wheezing, frequent colds and bronchitis) You can become psychologically dependent on marijuana. That means the craving to use the drug is emotional or psychological rather than due to physical withdrawal. Is Marijuana Running Your Life? Here are some of the signs: Relying on marijuana to feel good, forget problems, deal with stress or to relax Wanting to be alone most of the time or only with others who use drugs Losing interest in things that used to be important Changes in school or job performance or attendance Spending a lot of time thinking about how to get marijuana Stealing or selling your things so you can buy marijuana Unable to stop using even though you may want to quit Increasing anxiety, anger,or depression Sleeping too much, changes in eating habits (weight loss or gain) Needing to use more to get the same effect Home Care Once you have become addicted to any drug, quitting is hard to do. Most people find they can't quit without help. So, dont try to do this alone. Talk to someone you trust who can support you. Seek professional help. Avoid people and places where drugs are used. That only increases the temptation to use. Follow Up with your doctor or as advised by our staff. For more information or a referral to a treatment center in your area, contact: Your local mental health center or the National Alcohol and Substance Abuse Information Center (052)-172-4556 www.addictioncareoptions.com National [place] on Alcoholism and Drug Dependence 740-324-SEDY www.ncadd.org Marijuana Anonymous 769-015-7718 www.marijuana-anonymous.org Get Prompt Medical Attention if any of the following occur: You feel extreme depression, fear, anxiety, or anger toward yourself or others You feel out of control You feel that you may try to harm yourself or another How To Quit Smoking Smoking is one of the hardest habits to break. About half of all those who have ever smoked have been able to quit, and most of those (about 70%) who still smoke want to quit. Here are some of the best ways to stop smoking. Keep Trying: It takes most smokers about 8 tries before they are finally able to fully quit. So, the more often you try and fail, the better your chance of quitting the next time! So, don't give up! Go Cold [place]: Most ex-smokers quit cold turkey. Trying to cut back gradually doesn't seem to work as well, perhaps because it continues the smoking habit. Also, it is possible to fool yourself by inhaling more while smoking fewer cigarettes. This results in the same amount of nicotine in your body! Get Support: Support programs can make an important difference, especially for the heavy smoker. These groups offer lectures, methods to change your behavior and peer support. Call the free national Quitline for more information. 016-SWCA-ILE (301-342-1907). Low-cost or free programs are offered by many hospitals, local chapters of the [place] [employer] (454-916-3819) and the [place] [employer] (280-703-8223). Support at home is important too. Non-smokers can help by offering praise and encouragement. If the smoker fails to quit, encourage them to try again! Owhc-Niq-Xfrqtke Medicines: For those who can't quit on their own, Nicotine Replacement Therapy (NRT) may make quitting much easier. Certain aids such as the nicotine patch, gum and lozenge are available without a prescription. However, it is best to use these under the guidance of your doctor. The skin patch provides a steady supply of nicotine to the body. Nicotine gum and lozenge gives temporary bursts of low levels of nicotine. Both methods take the edge off the craving for cigarettes. WARNING: If you feel symptoms of nicotine overdose, such as nausea, vomiting, dizziness, weakness, or fast heartbeat, stop using these and see your doctor. Prescription Medicines: After evaluating your smoking patterns and prior attempts at quitting, your doctor may offer a prescription medicine such as bupropion (Zyban, Wellbutrin), varenicline (Chantix, Champix), a niocotine inhaler or nasal spray. Each has its unique advantage and side effects which your doctor can review with you. Health Benefits Of Quitting: The benefits of quitting start right away and keep improving the longer you go without smokin minutes: blood pressure and pulse return to normal 8 hours: oxygen levels return to normal 2 days: ability to smell and taste begins to improve as damaged nerves start to regrow 2-3 weeks: circulation and lung function improves 1-9 months: decreased cough, congestion and shortness of breath; less tired 1 year: risk of heart attack decreases by half 5 years: risk of lung cancer decreases by half; risk of stroke becomes the same as a non-smoker For information about how to quit smoking, visit the following links: National Cancer [place] , Clearing the Air, Quit Smoking Today - an online booklet. http://www.smokefree.gov/pubs/clearing_the_air.pdf Smokefree.gov http://smokefree.gov/ QuitNet http://www.quitnet.com/ Hydrocodone Bitartrate, Acetaminophen Oral tablet What is this medicine? ACETAMINOPHEN; HYDROCODONE (a set a SHAGGY juanita fen; milady droe KOE done) is a pain reliever. It is used to treat mild to moderate pain. How should I use this medicine? Take this medicine by mouth. Swallow it with a full glass of water. Follow the directions on the prescription label. If the medicine upsets your stomach, take the medicine with food or milk. Do not take more than you are told to take. Talk to your can vacuum tester regarding the use of this medicine in children. This medicine is not approved for use in children. What side effects may I notice from receiving this medicine? Side effects that you should report to your doctor or health restorative care technician as soon as possible: allergic reactions like skin rash, itching or hives, swelling of the face, lips, or tongue breathing problems confusion feeling faint or lightheaded, falls stomach pain yellowing of the eyes or skin Side effects that usually do not require medical attention (report to your doctor or health restorative care technician if they continue or are bothersome): nausea, vomiting stomach upset What may interact with this medicine? alcohol antihistamines isoniazid medicines for depression, anxiety, or psychotic disturbances medicines for sleep muscle relaxants naltrexone narcotic medicines (opiates) for pain phenobarbital ritonavir tramadol What if I miss a dose? If you miss a dose, take it as soon as you can. If it is almost time for your next dose, take only that dose. Do not take double or extra doses. Where should I keep my medicine? Keep out of the reach of children. This medicine can be abused. Keep your medicine in a safe place to protect it from theft. Do not share this medicine with anyone. Selling or giving away this medicine is dangerous and against the law. Store at room temperature between 15 and 30 degrees C (59 and 86 degrees F). Protect from light. Keep container tightly closed. Throw away any unused medicine after the expiration date. Discard unused medicine and used packaging carefully. Pets and children can be harmed if they find used or lost packages. What should I tell my health care provider before I take this medicine? They need to know if you have any of these conditions: brain tumor Crohn's disease, inflammatory bowel disease, or ulcerative colitis drink more than 3 alcohol-containing drinks per day drug abuse or addiction head injury heart or circulation problems kidney disease or problems going to the bathroom liver disease lung disease, asthma, or breathing problems an unusual or allergic reaction to acetaminophen, hydrocodone, other opioid analgesics, other medicines, foods, dyes, or preservatives or trying to get breast-feeding What should I watch for while using this medicine? Tell your doctor or health restorative care technician if your pain does not go away, if it gets worse, or if you have new or a different type of pain. You may develop tolerance to the medicine. Tolerance means that you will need a higher dose of the medicine for pain relief. Tolerance is normal and is expected if you take the medicine for a long time. Do not suddenly stop taking your medicine because you may develop a severe reaction. Your body becomes used to the medicine. This does NOT mean you are addicted. Addiction is a behavior related to getting and using a drug for a non-medical reason. If you have pain, you have a medical reason to take pain medicine. Your doctor will tell you how much medicine to take. If your doctor wants you to stop the medicine, the dose will be slowly lowered over time to avoid any side effects. You may get drowsy or dizzy when you first start taking the medicine or change doses. Do not drive, use machinery, or do anything that may be dangerous until you know how the medicine affects you. Stand or sit up slowly. There are different types of narcotic medicines (opiates) for pain. If you take more than one type at the same time, you may have more side effects. Give your health care provider a list of all medicines you use. Your doctor will tell you how much medicine to take. Do not take more medicine than directed. Call emergency for help if you have problems breathing. The medicine will cause constipation. Try to have a bowel movement at least every 2 to 3 days. If you do not have a bowel movement for 3 days, call your doctor or health restorative care technician. Too much acetaminophen can be very dangerous. Do not take Tylenol (acetaminophen) or medicines that contain acetaminophen with this medicine. Many non-prescription medicines contain acetaminophen. Always read the labels carefully. Ondansetron Oral disintegrating tablet What is this medicine? ONDANSETRON (on SHO se david) is used to treat nausea and vomiting caused by chemotherapy. It is also used to prevent or treat nausea and vomiting after surgery. How should I use this medicine? These tablets are made to dissolve in the mouth. Do not try to push the tablet through the foil backing. With dry hands, peel away the foil backing and gently remove the tablet. Place the tablet in the mouth and allow it to dissolve, then swallow. While you may take these tablets with water, it is not necessary to do so. Talk to your can vacuum tester regarding the use of this medicine in children. Special care may be needed. What side effects may I notice from receiving this medicine? Side effects that you should report to your doctor or health restorative care technician as soon as possible: allergic reactions like skin rash, itching or hives, swelling of the face, lips, or tongue breathing problems dizziness fast or irregular heartbeat feeling faint or lightheaded, falls fever and chills swelling of the hands and feet tightness in the chest Side effects that usually do not require medical attention (report to your doctor or health restorative care technician if they continue or are bothersome): constipation or diarrhea headache What may interact with this medicine? Do not take this medicine with any of the following medications: -apomorphine -cisapride -dofetilide -dronedarone -pimozide -thioridazine -ziprasidone This medicine may also interact with the following medications: -carbamazepine -phenytoin -rifampicin -tramadol -other medicines that prolong the QT interval (cause an abnormal heart rhythm) What if I miss a dose? If you miss a dose, take it as soon as you can. If it is almost time for your next dose, take only that dose. Do not take double or extra doses. Where should I keep my medicine? Keep out of the reach of children. Store between 2 and 30 degrees C (36 and 86 degrees F). Throw away any unused medicine after the expiration date. What should I tell my health care provider before I take this medicine? They need to know if you have any of these conditions: heart disease history of irregular heartbeat liver disease low levels of magnesium or potassium in the blood an unusual or allergic reaction to ondansetron, granisetron, other medicines, foods, dyes, or preservatives or trying to get breast-feeding What should I watch for while using this medicine? Check with your doctor or health restorative care technician as soon as you can if you have any sign of an allergic reaction. Clindamycin Hydrochloride Oral capsule What is this medicine? CLINDAMYCIN (DAVID Griffin) is a lincosamide antibiotic. It is used to treat certain kinds of bacterial infections. It will not work for colds, flu, or other viral infections. How should I use this medicine? Take this medicine by mouth with a full glass of water. Follow the directions on the prescription label. You can take this medicine with food or on an empty stomach. If the medicine upsets your stomach, take it with food. Take your medicine at regular intervals. Do not take your medicine more often than directed. Take all of your medicine as directed even if you think your are better. Do not skip doses or stop your medicine early. Talk to your can vacuum tester regarding the use of this medicine in children. Special care may be needed. What side effects may I notice from receiving this medicine? Side effects that you should report to your doctor or health restorative care technician as soon as possible: allergic reactions like skin rash, itching or hives, swelling of the face, lips, or tongue dark urine pain on swallowing redness, blistering, peeling or loosening of the skin, including inside the mouth unusual bleeding or bruising unusually weak or tired yellowing of eyes or skin Side effects that usually do not require medical attention (report to your doctor or health restorative care technician if they continue or are bothersome): diarrhea itching in the rectal or genital area joint pain nausea, vomiting stomach pain What may interact with this medicine? chloramphenicol erythromycin kaolin products What if I miss a dose? If you miss a dose, take it as soon as you can. If it is almost time for your next dose, take only that dose. Do not take double or extra doses. Where should I keep my medicine? Keep out of the reach of children. Store at room temperature between 20 and 25 degrees C (68 and 77 degrees F). Throw away any unused medicine after the expiration date. What should I tell my health care provider before I take this medicine? They need to know if you have any of these conditions: kidney disease liver disease stomach problems like colitis an unusual or allergic reaction to clindamycin, lincomycin, or other medicines, foods, dyes like tartrazine or preservatives or trying to get breast-feeding What should I watch for while using this medicine? Tell your doctor or healthcare professional if your symptoms do not start to get better or if they get worse. Do not treat diarrhea with over the counter products. Contact your doctor if you have diarrhea that lasts more than 2 days or if it is severe and watery. Prednisone Oral tablet What is this medicine? PREDNISONE (PRED ni sone) is a corticosteroid. It is commonly used to treat inflammation of the skin, joints, lungs, and other organs. Common conditions treated include asthma, allergies, and arthritis. It is also used for other conditions, such as blood disorders and diseases of the adrenal glands. How should I use this medicine? Take this medicine by mouth with a glass of water. Follow the directions on the prescription label. Take this medicine with food. If you are taking this medicine once a day, take it in the morning. Do not take more medicine than you are told to take. Do not suddenly stop taking your medicine because you may develop a severe reaction. Your doctor will tell you how much medicine to take. If your doctor wants you to stop the medicine, the dose may be slowly lowered over time to avoid any side effects. Talk to your can vacuum tester regarding the use of this medicine in children. Special care may be needed. What side effects may I notice from receiving this medicine? Side effects that you should report to your doctor or health restorative care technician as soon as possible: allergic reactions like skin rash, itching or hives, swelling of the face, lips, or tongue changes in emotions or moods changes in vision depressed mood eye pain fever or chills, cough, sore throat, pain or difficulty passing urine increased thirst swelling of ankles, feet Side effects that usually do not require medical attention (report to your doctor or health restorative care technician if they continue or are bothersome): confusion, excitement, restlessness headache nausea, vomiting skin problems, acne, thin and shiny skin trouble sleeping weight gain What may interact with this medicine? Do not take this medicine with any of the following medications: metyrapone mifepristone This medicine may also interact with the following medications: aminoglutethimide amphotericin B aspirin and aspirin-like medicines barbiturates certain medicines for diabetes, like glipizide or glyburide cholestyramine cholinesterase inhibitors cyclosporine digoxin diuretics ephedrine female hormones, like estrogens and control pills isoniazid ketoconazole NSAIDS, medicines for pain and inflammation, like ibuprofen or naproxen phenytoin rifampin toxoids vaccines warfarin What if I miss a dose? If you miss a dose, take it as soon as you can. If it is almost time for your next dose, talk to your doctor or health restorative care technician. You may need to miss a dose or take an extra dose. Do not take double or extra doses without advice. Where should I keep my medicine? Keep out of the reach of children. Store at room temperature between 15 and 30 degrees C (59 and 86 degrees F). Protect from light. Keep container tightly closed. Throw away any unused medicine after the expiration date. What should I tell my health care provider before I take this medicine? They need to know if you have any of these conditions: Marcia's syndrome diabetes glaucoma heart disease high blood pressure infection (especially a virus infection such as chickenpox, cold sores, or herpes) kidney disease liver disease mental illness myasthenia gravis osteoporosis seizures stomach or intestine problems thyroid disease an unusual or allergic reaction to lactose, prednisone, other medicines, foods, dyes, or preservatives or trying to get breast-feeding What should I watch for while using this medicine? Visit your doctor or health restorative care technician for regular checks on your progress. If you are taking this medicine over a prolonged period, carry an identification card with your name and address, the type and dose of your medicine, and your doctor's name and address. This medicine may increase your risk of getting an infection. Tell your doctor or health restorative care technician if you are around anyone with measles or chickenpox, or if you develop sores or blisters that do not heal properly. If you are going to have surgery, tell your doctor or health restorative care technician that you have taken this medicine within the last twelve months. Ask your doctor or health restorative care technician about your diet. You may need to lower the amount of salt you eat. This medicine may affect blood sugar levels. If you have diabetes, check with your doctor or health restorative care technician before you change your diet or the dose of your diabetic medicine. Acetaminophen Oral tablet What is this medicine? ACETAMINOPHEN (a set a SHAGGY juanita fen) is a pain reliever. It is used to treat mild pain and fever. How should I use this medicine? Take this medicine by mouth with a glass of water. Follow the directions on the package or prescription label. Take your medicine at regular intervals. Do not take your medicine more often than directed. Talk to your can vacuum tester regarding the use of this medicine in children. While this drug may be prescribed for children as young as 6 years of age for selected conditions, precautions do apply. What side effects may I notice from receiving this medicine? Side effects that you should report to your doctor or health restorative care technician as soon as possible: allergic reactions like skin rash, itching or hives, swelling of the face, lips, or tongue breathing problems fever or sore throat redness, blistering, peeling or loosening of the skin, including inside the mouth trouble passing urine or change in the amount of urine unusual bleeding or bruising unusually weak or tired yellowing of the eyes or skin Side effects that usually do not require medical attention (report to your doctor or health restorative care technician if they continue or are bothersome): headache nausea, stomach upset What may interact with this medicine? alcohol imatinib isoniazid other medicines with acetaminophen What if I miss a dose? If you miss a dose, take it as soon as you can. If it is almost time for your next dose, take only that dose. Do not take double or extra doses. Where should I keep my medicine? Keep out of reach of children. Store at room temperature between 20 and 25 degrees C (68 and 77 degrees F). Protect from moisture and heat. Throw away any unused medicine after the expiration date. What should I tell my health care provider before I take this medicine? They need to know if you have any of these conditions: if you frequently drink alcohol containing drinks liver disease an unusual or allergic reaction to acetaminophen, other medicines, foods, dyes or preservatives or trying to get breast-feeding What should I watch for while using this medicine? Tell your doctor or health restorative care technician if the pain lasts more than 10 days (5 days for children), if it gets worse, or if there is a new or different kind of pain. Also, check with your doctor if a fever lasts for more than 3 days. Do not take other medicines that contain acetaminophen with this medicine. Always read labels carefully. If you have questions, ask your doctor or pharmacist. If you take too much acetaminophen get medical help right away. Too much acetaminophen can be very dangerous and cause liver damage. Even if you do not have symptoms, it is important to get help right away. You have been given the following additional information: Pharyngitis, Report Pending Marijuana Abuse Smoking Cessation Hydrocodone Bitartrate, Acetaminophen Oral tablet Ondansetron Oral disintegrating tablet Clindamycin Hydrochloride Oral capsule Prednisone Oral tablet Acetaminophen Oral tablet Do not work for two days. (Electronically signed by Guille Frances DO 03/04/2017 6:15)
--- NOTE | 2017-03-09 20:32 | ED MED RECONCILIATION SUMMARY ---
Patient: DUSTIN HAMMONDS Medication Reconciliation Report [facility] VisitID: [id number] [place] [address] 21y, F Registration Date/Time: 03/04/2017 Weight: 77.1 kg Height/Length: 65 in. BMI: 28.3 ALLERGIES: None The patient's Home Medications are listed below: NONE. The source(s) of the original Home Medication information: Not obtained. The following Medications were given to the patient in the Emergency Department: Clindamycin [PO] PO 300 mg, administered: 03/04/2017 6:00:00 AM Hydrocodone-APAP [PO] PO 1 tab, administered: 03/04/2017 6:02:00 AM Zofran ODT [PO] PO 4 mg, administered: 03/04/2017 6:03:00 AM The following Medications were prescribed to the patient: Acetaminophen (available over the counter): take according to label instructions. -- Guille Frances DO Hydrocodone/APAP 5mg / 325mg: take 1-2 orally every 8 hours as needed for pain. Dispense ten (10). No refill. -- Guille Frances DO Zofran (orally disintegrating tablets) 4 mg: take 1-2 orally every 8 hours as needed for nausea and vomiting. Dispense five (5). No refill. Substitution is permissible. -- Guille Frances DO Cleocin 300 mg: take 1 capsule orally every 6 hours for 7 days. No refills. Substitution is permissible. -- Guille rFances DO Prednisone 20 mg: take 3 orally every 12 hours for 4 days. Dispense sufficient quantity. No refills. -- Guille Frances DO
== END 2017-03-04 06:05 | disposition home or self-care (01) ==
LOC: ED SRH 05:35
DX: J02.0 Streptococcal pharyngitis (principal); F17.210 Nicotine dependence, cigarettes, uncomplicated; F12.10 Cannabis abuse, uncomplicated
CPT/HCPCS: 90154